=== PATIENT | male | born 1955 | race Caucasian/White ===

== ENCOUNTER 2019-01-25 22:41 | Inpatient (IN) | payer BC ==
[~2019-01-25] VITALS: Ht 185.4 cm; Wt 106.1 kg
[2019-01-25 23:30] VITALS: BP 132/59
[2019-01-26] VITALS (9 sets, daily range): BP systolic 132–176; BP diastolic 59–97
[2019-01-26] MEDS ORDERED: HYDROCODONE/APAP 5MG-325MG TAB PO PRN (00:30)
[2019-01-26] MEDS ORDERED: INSULIN GLARGINE 100 UNITS/ML VIAL SQ SCH (00:30)
[2019-01-26] MEDS ORDERED: ONDANSETRON HCL INJ 2MG/ML 2ML 2 MG/ML VIAL IV PRN (00:30)
--- NOTE | 2019-01-26 00:30 | NUR ---
Received patient from ER and amb. Refused wheelchair. AAOx3. No s/s of resp distress. C/o pain only with activity, walking, and changing position. Noted 2.5 x 2.5 abscess that is necrotic and surrounding skin with redness, erythema, and swelling. Oriented to room. x2 rails up. Call light within reach and instructed to call for assistance.
[2019-01-26] MEDS ORDERED: DEXTROSE 50% SYRINGE 50 ML IV PRN (00:45)
[2019-01-26] MEDS ORDERED: SODIUM CHLORIDE 0.9% 250ML 250 ML ONE (04:59)
[2019-01-26] MEDS: PIPER-TAZ 3.375 GM 50 ML IV SCH ×3 (05:33→18:11)
--- NOTE | 2019-01-26 07:00 | NUR ---
PATIENT IS AWAKE AND IN STABLE CONDITION WITH NO S/S OF RESPIRATORY DISTRESS. PATIENT DENIES PAIN. ABSCESS NOTED ON LEFT TESTICLE NEAR INNER LEFT THIGH. CALL LIGHT IS WITHIN REACH, PATIENT INSTRUCTED TO CALL FOR ASSISTANCE NEEDED.
[2019-01-26] MEDS: INSULIN LISPRO 100 UNIT/1 ML 3ML VIAL SQ SCH ×4 (07:30→20:50)
[2019-01-26] MEDS: HYDRALAZINE HCL 20 MG/ML VIAL IV PRN (08:17)
[2019-01-26 09:45] LABS: BASOPHILS % 1.1 % (0.0-1.0); EOSINOPHILS # (AUTO) 0.2 (0.0-0.4); EOSINOPHILS % 4.1 % (0.0-6.0); HEMATOCRIT 40.5 % (38.2-49.6); HEMOGLOBIN 13.6 g/dL (14.0-18.0); LYMPHOCYTES # (AUTO) 0.8 (1.0-3.2); LYMPHOCYTES % 21.5 % (18.0-39.1); MEAN CORPUSCULAR HGB CONC 33.6 g/dL (31-35); MEAN CORPUSCULAR VOLUME 92.3 fL (81-99); MONOCYTES # (AUTO) 0.3 (0.2-0.8); MONOCYTES % 9.3 % (4.4-11.3); NEUTROPHILS # (AUTO) 2.3 (2.1-6.9); NEUTROPHILS % 63.7 % (38.7-80.0); PLATELET COUNT 142 x10e3/uL (140-360); RED BLOOD COUNT 4.39 x10e6/uL (4.3-5.7); RED CELL DISTRIBUTION WIDTH 12.4 % (11.7-14.4)
[2019-01-26 10:00] LABS: ANION GAP 11.2 mmol/L (8-16); BLOOD UREA NITROGEN 12 mg/dL (7-26); BUN/CREATININE RATIO 14 (6-25); CALCIUM 8.8 mg/dL (8.4-10.2); CARBON DIOXIDE 23 mmol/L (22-29); CHLORIDE 107 mmol/L (98-107); CREATININE, SERUM 0.84 mg/dL (0.72-1.25); EST GLOMERULAR FILTRATION RATE > 60 ML/MIN (60-); GLUCOSE 344 mg/dL (74-118); POTASSIUM 4.2 mmol/L (3.5-5.1); SODIUM 137 mmol/L (136-145)
--- NOTE | 2019-01-26 10:30 | NUR ---
SPOKE WITH DR. TERAN REGARDING WOUND CARE CONSULT ORDER. ORDER TO WAIT ON WOUND CARE CONSULT UNTIL DR. SRINIVASAN SEES THE PATIENT AND ABSCESS.
[2019-01-26] MEDS: VANCOMYCIN 1GM/NS 250 ML 250 ML IV SCH ×2 (11:52→21:33)
--- NOTE | 2019-01-26 12:24 | NUR ---
CASE MANAGEMENT INITIAL ASSESSMENT Parts And Service Manager to bedside to discuss plan of care with patient/family. CM/SW role and care transitions discussed. Anticipated discharge plan discussed along with duration of care. CM/SW discussed patients right to make decisions in care. CM/SW work hours given. DEMOGRAPHICS VERIFIED AND FOUND TO BE INCORRECT. MADE CORRECTIONS AND SENT INFO TO BUSINESS OFFICE Patient lives: HE TRAVELS ALONE WITH WORK Admit/Transfer: SENT [facility] Hospital/ER visits since last admit:NONE POA/Emergency contact: BROTHER: ALLISON LAZAR [phone] Current/Previous Home Health: NONE PCP/Follow-up Care: NONE. LAST WENT TO [facility]YSIC[facility] WHILE WORKING IN [place]. WENT TO [facility] ([place], [place]) Current/Previous DME: NONE Medications (referring to index hospitalization or the first time you were in the hospital) HE IS NON COMPLIANT AND DOES NOT TAKE HIS MEDICATIONS. STATED LISINOPRIL MAKES HIM FEEL BAD, AND HE WAS TAKING IT FOR HIS BLOOD PRESSURE. HE STOPPED TAKING DIABETIC MEDICINE, INCLUDING INSULIN BECAUSE "IT DIDN'T HELP". HE WAS NOT AND IS NOT ON AN ADA DIET BECAUSE HE LIKES MASHED POTATOES. a. Were changes made in your medications when you were in the hospital on [date of index hospitalization]? Yes No Not sure Explain: Note: If no or not sure, please skip to question d b. Did you understand the changes? Yes No Explain: c. Were you able to obtain your new medications right away? Yes No n/a SNF only Explain: d. Were you able to take your medications like the doctor wanted you to? Yes No Explain: e. Did the hospital give you an accurate, easy to understand list of medications when you left? Yes No n/a SNF only Explain: Scale of 1-10 how comfortable does patient feel with disease management in outpatient setting: Other Services: Employment Status: EMPLOYED Areas of Concerns: NON COMPLIANCE WITH MEDICATIONS AND DIET. Referral Needs: DIETARY CONSULT Education Needs: DISEASE PROCESSES (DIABETES/HIGH BLOOD PRESSURE/GLAUCOMA), ADA DIET, EXERCISE, MEDICATIONS IMM/GIBBS given and signed (if applicable): N/A Goal for discharge: TO DC HOME CM/SW left business card at the bedside with contact information. Name and number was also written on the patients whiteboard. Patient verbalized understanding of discussion. CM will follow-up with ongoing discharge and transition of care needs. CM DID TEACHING ON DIABETES AND THE EFFECTS OF SUGAR ON HIS BODY. EXPLAINED THE COMPLICATIONS AND DANGERS OF HIS DISEASES. CM SPOKE TO HIS NURSE, THOMAS BAILEY AND NOTIFIED HER OF HIS MISUNDERSTANDING OF HIS MEDS AND DISEASES PROCESS. SUGGESTED DIETARY CONSULT AND FURTHER EDUCATION.
--- NOTE | 2019-01-26 14:13 | NUR ---
CALL PLACED OUT TO DR. SRINIVASAN TO CLARIFY CT PELVIS ORDER REQUESTED BY RADIOLOGY- AWAITING CALLBACK.
--- NOTE | 2019-01-26 14:15 | NUR ---
Nutrition Screen Note RD Recommendation for Physician:Continue diet as ordered Plan of Care: RD following, monitoring for adequacy and tolerance Nutrition reason for involvement: Nutrition Risk Trigger - MST Primary Diagnose(s): testicular abscess Ht:73 in Wt:234lbs BMI:30.9 kg/m2 IBW:196lbs RD Assessment:(01/26/2019) Initial encounter with patient. Pt is eating well. Pt denies any N,V,D, nor has any difficulty chewing or swallowing. No wt changes. Current Diet: Regular diet Malnutrition Evaluation (01/26/2019) The patient does not meet criteria for a specified degree of malnutrition at this time. Will re-evaluate at follow-up as appropriate. Diet Education Needs Assessment: Diet education not indicated. Diet Adequacy: Meeting calorie needs, Meeting protein needs, Meeting fluid needs Tolerance: Tolerating PO Nutrition Care Level:eliezer Novak RD, LD, [facility]
[2019-01-26 15:10] LABS: CLARITY,URINE HAZY (CLEAR); COLOR,URINE YELLOW (YELLOW)
[2019-01-26 15:11] LABS: BILIRUBIN,URINE NEGATIVE (NEGATIVE); KETONES,URINE NEGATIVE (NEGATIVE); LEUKOCYTE ESTERASE ,URINE NEGATIVE (NEGATIVE); NITRITE,URINE NEGATIVE (NEGATIVE); PROTEIN,URINE DIPSTICK NEGATIVE (NEGATIVE); URINE UROBILINOGEN 1 mg/dL (0.2 - 1)
[2019-01-26 15:12] LABS: BACTERIA,URINE FEW /HPF; EPITHELIAL CELLS,URINE FEW /LPF; TYROSINE CRYSTAL,URINE FEW; WBC,URINE (MAN) 0-5 /HPF (0-5)
--- NOTE | 2019-01-26 16:52 | History and Physical ---
CHIEF COMPLAINT: Left scrotal abscess. HISTORY OF PRESENT ILLNESS: The patient is a 63-year-old male with failed outpatient treatment with scrotal abscess. The patient came to the urgent care, was given penicillin, and some cream previously, went home, and then it got worse, and he came to another urgent care evaluation and now admitted to the hospital for IV antibiotics and possible incision and drainage of the left scrotal area with abscess. The patient could not recall the event, but it started out with a small lesion on his left scrotal area. It is now developed into phlegmon with a necrotic opening tissue noticed on the left scrotal area associated with some drainage and redness surrounding the scrotum. The patient admitted. Antibiotic Zosyn is initiated. PAST MEDICAL HISTORY: Diabetes type 2, on insulin treatment. Hypertension. PAST SURGICAL HISTORY: Noncontributory. SOCIAL HISTORY: The patient does not smoke or use alcohol. No recreational drugs. ALLERGIES: NO KNOWN ALLERGIES. HOME MEDICATIONS: List is reviewed including insulin. PHYSICAL EXAMINATION: VITAL SIGNS: Temperature is 98, blood pressure 132/59, pulse rate is 69, respirations 20. GENERAL: The patient is not in acute distress. He is awake. HEENT: Normocephalic, atraumatic. Anicteric. NECK: Supple grossly. PULMONARY: Clear. CARDIOVASCULAR: Regular rate and rhythm. ABDOMEN: Soft. EXTREMITIES: No cyanosis or edema. UROLOGICAL: Left scrotal abscess with an opening necrotic tissue with surrounding erythema. NEUROLOGIC: No gross focal deficit. LABORATORY DATA: Urgent Care laboratory results are not available on the patient's admitting chart. IMPRESSION: 1. Left scrotal abscess, failed outpatient treatment with oral antibiotics. 2. Baseline diabetes type 2, on insulin therapy. 3. Hypertension. PLAN: IV antibiotics and Zosyn and we will start the patient on vancomycin. Continue with home medication. Insulin sliding scale coverage. Keep blood sugar under control. Obtain glycohemoglobin A1c and repeat lab work in the morning. Consultation with Dr. Lance Regalado. The patient may need incision and drainage of the scrotal area. MD PARAS Rao/MODL /[id number]
[2019-01-26] MEDS ORDERED: SODIUM CHLORIDE 0.9% 50ML 50 ML ONE (17:21)
[2019-01-26] MEDS ORDERED: IOPAMIDOL 370 MG/ML 200 ML INFUS..BTL INJ ONE (17:22)
--- NOTE | 2019-01-26 18:16 | Diagnostic Imaging Report ---
EXAM: CT Pelvis WITH contrast INDICATION: ^SCROTAL/INGUINAL ABSCESS ^[id number] ^[id number] COMPARISON: None. TECHNIQUE: pelvis was scanned utilizing a multidetector helical scanner after administration of IV contrast. Coronal and sagittal reformations were obtained. Routine protocol was performed. Scan was performed when during portal venous phase. IV CONTRAST: 100 mL of Isovue-370 ORAL CONTRAST: None RADIATION DOSE: Total DLP: 477.9 mGy*cm Estimated effective dose: (DLP x 0.015 x size factor) mSv COMPLICATIONS: None FINDINGS: LINES and TUBES: None. GI TRACT: No abnormal distention, wall thickening, or evidence of bowel obstruction of the partially visualized bowel. Appendix is normal. PELVIC ORGANS/BLADDER: The urinary bladder appears unremarkable. Prostate calcifications. Heterogeneous appearance of the partially visualized scrotum may correlate with this patient known abscess. LYMPH NODES: No lymphadenopathy. VESSELS: Unremarkable. PERITONEUM / RETROPERITONEUM: No free air or fluid. BONES: Unremarkable. SOFT TISSUES: Unremarkable. IMPRESSION: No intrapelvic abscess or fluid collections. Signed by: Dr. Nadege Azul M.D. on 01/26/2019 6:13 PM
--- NOTE | 2019-01-26 18:32 | Consultation ---
DATE OF CONSULTATION: 01/26/2019 Urology Consultation Consultation was called by Dr. Abundio Walker. CHIEF COMPLAINT/REASON FOR CONSULTATION: Inguinal scrotal cellulitis, scrotal abscess. HISTORY OF PRESENT ILLNESS: Mr. Zhu is a 63-year-old male patient, who has had an 8-day history of left-sided boil in his scrotum. He presented to an outside emergency room, was begun on oral antibiotics failed. This return to the emergency room, was transferred to [facility] last evening with spontaneous drainage of the abscess as well as pain and redness when he felt it was spreading. The patient denied fevers, no chills. Denied dysuria. Denied gross hematuria. PAST MEDICAL HISTORY: Notable for poorly controlled diabetes, hypertension. MEDICATIONS: Please see MAR. ALLERGIES: NKDA. SOCIAL HISTORY: The patient denies smoking. FAMILY HISTORY: The patient denied urologic stones or malignancies. REVIEW OF SYSTEMS: Noncontributory other than problems mentioned above for 12 organ systems. PHYSICAL EXAMINATION: GENERAL: Overweight male, in no acute distress. Currently, he is afebrile with an elevated blood pressure. VITAL SIGNS: Stable. HEENT: Sclerae anicteric. NECK: Supple. BACK: Without costovertebral tenderness bilaterally. ABDOMEN: Soft. It is nontender. It is nondistended. No palpable mass. No palpable hernias. No palpable adenopathy. : Normal male phallus. The scrotum right appears normal. The left scrotal wall thickening and necrotic area on the lateral anterior aspect of the scrotum, which is draining a profuse amount of pus, minimal fluctuance, mostly woody edema, felt after drainage spontaneously of the pus. I cannot palpate the left testicle secondary to edema. The right testicle appears normal. The right epididymis appears normal. EXTREMITIES: Trace edema. NEURO: Moves all four extremities on command. PSYCH: Alert, mood appropriate. SKIN: Intact. Normal color. PERTINENT LABORATORY DATA: Notable for CBC abnormalities of white count of only 4300. Chem 7, which is normal except for elevated blood glucoses of 269. IMPRESSION: 1. Inguinal scrotal cellulitis. 2. Scrotal abscess. 3. Leukopenia. 4. Hypertension. 5. Overweight status. 6. Poorly controlled diabetes mellitus. PLAN: The patient will be begun broad-spectrum IV antibiotics. I agree with this. Recommend a wound culture which apparently has been performed in the emergency room. As the patient has a question of spreading into his scrotal neck is definitely inflamed and edematous. We will obtain a CT scan of the pelvis to ensure that there is no underlying inguinal abscess process. Defer the workup of leukopenia, hypertension to Dr. Walker. Thank you for allowing me to participate in care of your patient. I will be happy to follow along with you. Lance Regalado MD ES/MODL /[id number] cc: MD Lance Rao MD
--- NOTE | 2019-01-26 18:41 | NUR ---
CALLED AND SPOKE WITH DR. TERAN UPON PATIENT'S REQUEST FOR MEDICATION TO ASSIST WITH A BM- NEW ORDER RECEIVED.
--- NOTE | 2019-01-26 18:51 | NUR ---
PATIENT IS IN STABLE CONDITION WITH NO S/S OF RESPIRATORY DISTRESS. NO PAIN VOICED. IV FLUIDS INFUSING. CALL LIGHT IS WITHIN REACH, PATIENT INSTRUCTED TO CALL FOR ASSISTANCE NEEDED. BEDSIDE REPORT GIVEN TO ONCOMING NURSE.
[2019-01-26] MEDS ORDERED: SENNA-S TABLET PO NR (19:00)
[2019-01-26] MEDS: INSULIN GLARGINE 100 UNITS/ML VIAL SQ SCH (20:50)
[2019-01-26] MEDS: ACETAMINOPHEN 325 MG TAB PO PRN (21:00)
[2019-01-27] VITALS (7 sets, daily range): BP systolic 117–173; BP diastolic 71–90
[2019-01-27] MEDS: PIPER-TAZ 3.375 GM 50 ML IV SCH ×4 (00:45→17:01)
[2019-01-27] MEDS: ACETAMINOPHEN 325 MG TAB PO PRN (06:32)
[2019-01-27 06:43] LABS: BASOPHILS # (AUTO) 0.1 (0.0-0.1); EOSINOPHILS # (AUTO) 0.2 (0.0-0.4); EOSINOPHILS % 3.5 % (0.0-6.0); HEMATOCRIT 44.3 % (38.2-49.6); HEMOGLOBIN 14.8 g/dL (14.0-18.0); LYMPHOCYTES % 19.1 % (18.0-39.1); MEAN CORPUSCULAR HEMOGLOBIN 30.7 pg (28-32); MEAN CORPUSCULAR HGB CONC 33.4 g/dL (31-35); MEAN CORPUSCULAR VOLUME 91.9 fL (81-99); MONOCYTES # (AUTO) 0.5 (0.2-0.8); MONOCYTES % 9.1 % (4.4-11.3); NEUTROPHILS # (AUTO) 3.5 (2.1-6.9); NEUTROPHILS % 66.9 % (38.7-80.0); PLATELET COUNT 183 x10e3/uL (140-360); RED BLOOD COUNT 4.82 x10e6/uL (4.3-5.7); RED CELL DISTRIBUTION WIDTH 12.4 % (11.7-14.4)
[2019-01-27 06:59] LABS: BLOOD UREA NITROGEN 8 mg/dL (7-26); BUN/CREATININE RATIO 10 (6-25); CALCIUM 9.1 mg/dL (8.4-10.2); CARBON DIOXIDE 22 mmol/L (22-29); CHLORIDE 108 mmol/L (98-107); CREATININE, SERUM 0.78 mg/dL (0.72-1.25); EST GLOMERULAR FILTRATION RATE > 60 ML/MIN (60-); GLUCOSE 139 mg/dL (74-118); SODIUM 139 mmol/L (136-145)
[2019-01-27] MEDS: INSULIN LISPRO 100 UNIT/1 ML 3ML VIAL SQ SCH ×4 (07:30→21:00)
--- NOTE | 2019-01-27 07:30 | NUR ---
PATIENT IS AWAKE AND IN STABLE CONDITION WITH NO S/S OF RESPIRATORY DISTRESS- NO PAIN VOICED. ABSCESS (SLIGHTLY OPEN) NOTED ON LEFT TESTICLE; DRESSING APPLIED. CALL LIGHT IS WITHIN REACH, PATIENT INSTRUCTED TO CALL FOR ASSISTANCE NEEDED.
[2019-01-27] MEDS: SENNA-S TABLET PO SCH ×2 (08:59→17:01)
[2019-01-27] MEDS: HYDRALAZINE HCL 20 MG/ML VIAL IV PRN (08:59)
[2019-01-27 11:08] LABS: HIV 1&2 AB SCREEN NON-REACTIVE (NONREACTIVE)
[2019-01-27] MEDS: VANCOMYCIN 1GM/NS 250 ML 250 ML IV SCH ×2 (12:35→22:10)
--- NOTE | 2019-01-27 12:42 | NUR ---
PATIENT OFFERED A SHOWER BY RN AND PCT. PATIENT WANTS TO SHOWER CLOSE TO MIDNIGHT AGAIN.
--- NOTE | 2019-01-27 19:25 | NUR ---
PATIENT IN STABLE CONDITION WITH NO S/S OF RESPIRATORY DISTRESS. NO PAIN VOICED. IV SALINE LOCKED. GAUZE APPLIED TO ABSCESS AREA. CALL LIGHT IS WITHIN REACH, PATIENT INSTRUCTED TO CALL FOR ASSISTANCE NEEDED. BEDSIDE REPORT GIVEN TO ONCOMING NURSE.
--- NOTE | 2019-01-27 20:05 | NUR ---
RECEIVED PT WALKING IN THE ROOM LEFT SIDE OF THE SCROTUM SLIGHTLY SWOLLEN.DENIES PAIN .CALL LIGHT WITH IN REACH
[2019-01-27] MEDS: INSULIN GLARGINE 100 UNITS/ML VIAL SQ SCH (21:00)
[2019-01-28] VITALS: BP 149/77
[2019-01-28] MEDS: PIPER-TAZ 3.375 GM 50 ML IV SCH (00:07)
[2019-01-28] MEDS ORDERED: SODIUM CHLORIDE 0.9% 250ML 250 ML ONE (05:52)
--- NOTE | 2019-01-28 07:03 | NUR ---
PT RESTING .DENIES PAIN NO ACUTE DISTRESS NOTED .CALL LIGHT WITH IN REACH .CONTINUE TO MONITOR .REPORT GIVEN TO THE ONCOMING NURSE
--- NOTE | 2019-01-28 07:09 | NUR ---
REPORT GIVEN TO THE ONCOMING NURSE
[2019-01-28] MEDS: INSULIN LISPRO 100 UNIT/1 ML 3ML VIAL SQ SCH (07:30)
--- NOTE | 2019-01-28 07:30 | NUR ---
REC'D PT ON LATERAL POSITION, NO S/S OF DISTRESS, BED IN LOWEST POSITION, SIDE RAILS UP X2, AND CALL BURROUGHS WITHIN REACH.
[2019-01-28 08:00] VITALS: BP 149/79
[2019-01-28] MEDS: SENNA-S TABLET PO SCH (09:15)
[2019-01-28] MEDS ORDERED: ONDANSETRON HCL 4 MG ORAL DISINTEGRATING TAB PO PRN (10:45)
[2019-01-28 10:47] VITALS: BP 149/79
[2019-01-28] MEDS ORDERED: AUGMENTIN 875-1 EACH PO (10:58)
[2019-01-28] MEDS ORDERED: DOXYCYCLINE HY100 MG PO (10:58)
[2019-01-28] MEDS ORDERED: TYLENOL WITH C1 EACH PO (10:59)
[2019-01-28] MEDS ORDERED: JANUMET 50-5001 EACH PO (11:00)
[2019-01-28] MEDS ORDERED: TRESIBA SQ (11:03)
--- NOTE | 2019-01-28 11:25 | NUR ---
PT HAS BEEN DISCHARGED HOME BY NURSE. NO S/S OF DISTRESS. IV ON RIGHT AND LEFT ARMS HAVE BEEN REMOVED. NO IV COMPLICATIONS.
--- NOTE | 2019-01-29 11:20 | Discharge Summary ---
DIRECTOR OF INSTRUCTION: Dr. Lance Regalado. FINAL DIAGNOSES: 1. Left scrotal abscess with drain. 2. Left scrotal swelling and pain, much improving. 3. Baseline diabetes type 2, did not take medication. SUMMARY: The patient is a 63-year-old male, who is on Janumet and Lantus at night. The patient stopped medication approximately five to six months, came in with left scrotal abscess, failed outpatient treatment, multiple urgent care visits, admitted to the hospital. The patient is stable. Leukopenia resolved, WBC is 5.2, it was 3.67 on admission. Serology HIV was negative. The patient has high blood sugar. His blood sugar level on admission was 271. Is much better now with treatment, blood sugar 125 to 170. The patient is stable. WBC now is 5.2. Toxicology is unremarkable. The patient is stable. CT scan of the pelvis showed no abscess. There is no intrapelvic abscess or fluid collection. The scrotal abscess on the left is draining and does have an open wound. The patient is stable. Advise sitz bath. The patient will go home with Augmentin 875 mg twice a day for seven days, doxycycline 100 mg twice a day for seven days, Tylenol No. 3 for pain, Janumet 50/500 one tablet b.i.d., Tresiba FlexTouch 200 units per meal and 20 units at night. The patient is stable, discharged home today. Follow up with Dr. Regalado and his family physician within a week. MD PARAS Rao/MILAD /[id number]
== END 2019-01-28 11:27 | disposition home or self-care (01) | DRG 728 ==
LOC: MED/SURG3 22:41 → OBSVTOIN 01-27 09:28
PROVIDERS: ADMIT Internal Medicine; ATTEND Internal Medicine
DX: N49.2 Inflammatory disorders of scrotum (principal); Z91.14 Patient's other noncompliance with medication regimen; I10 Essential (primary) hypertension; E11.65 Type 2 diabetes mellitus with hyperglycemia; E66.3 Overweight; Z68.30 Body mass index [BMI] 30.0-30.9, adult; D72.819 Decreased white blood cell count, unspecified
CPT/HCPCS: 36415; 72193; 80048; 80202; 81001; 82948; 85025; 87071; 87205; 87390; G0378; G0433; G0435; J0360; J1815; J2543; J3370; J7050; Q9967